=== PATIENT | female | born 1960 | race Caucasian/White ===

== ENCOUNTER 2019-09-23 09:57 | Emergency (ER) | payer SELFPAY ==
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
[2019-09-23 10:11] VITALS: BP 138/110; PULSE 115; RESP 16; TEMP 36.6; O2SAT 97; BMI 14.5
[2019-09-23] MEDS: LORazepam 1 mg Tablet PO (10:25)
[2019-09-23 10:33] VITALS: PULSE 89; RESP 16; O2SAT 94
== END 2019-09-23 10:33 | disposition home or self-care (01) ==
LOC: ER 11:58
PROVIDERS: Emergency Provider Emergency Medicine
DX: Z48.02 Encounter for removal of sutures (principal); F41.9 Anxiety disorder, unspecified; Z59.0 Homelessness; F17.200 Nicotine dependence, unspecified, uncomplicated
CPT/HCPCS: 99284

== ENCOUNTER 2021-07-18 15:11 | Emergency (ER) | payer SELFPAY ==
[2021-07-18 15:30] VITALS: BP 116/83; PULSE 94; RESP 16; TEMP 36.8; O2SAT 98
== END 2021-07-18 19:51 | disposition left against medical advice (07) ==
LOC: ER 15:14
DX: Z53.21 Procedure and treatment not carried out due to patient leaving prior to being seen by health care provider (principal)
CPT/HCPCS: 99282